=== PATIENT | male | born 1940 | race Caucasian/White ===

== ENCOUNTER 2020-05-25 07:41 | Emergency (ER) | payer MEDICARE ==
[2020-05-25 08:11] LABS: BASOPHIL 0.3 % (0-2); EOSINOPHIL 0.8 % (0-7); HCT 36.5 % (42.0-52.0); HGB 11.7 g/dl (13.2-18.0); LYMPHOCYTE 5.9 % (15-48); MCH 29.5 pg (25.0-31.0); MCHC 32.1 g/dL (32.0-36.0); MCV 92.2 fL (78.0-100.0); MONOCYTE 1.3 % (0-12); MPV 9.5 fL (6.0-9.5); NRBC 0; PLT 132 K/uL (150-400); RBC 3.96 M/uL (4.70-6.00); RDW 13.3 % (11.5-14.0); WBC 3.7 K/uL (4.0-10.5)
[2020-05-25 08:19] LABS: NEUTROPHIL 91.4 % (41-80)
[2020-05-25 08:21] LABS: INR 0.96 (0.9-1.2); PROTHROMBIN TIME 12.1 SECONDS (11.4-13.6); PTT 26.3 SECONDS (22.2-34.7)
[2020-05-25 08:36] LABS: LACTIC ACID 4.1 mmol/L (0.4-1.9)
[2020-05-25 08:38] LABS: ALBUMIN 3.5 g/dL (3.4-5.0); BILIRUBIN - TOTAL 0.5 mg/dL (0.2-1.0); BUN/CREAT RATIO (CALC) 28.9 RATIO; CREATININE 0.76 mg/dL (0.67-1.17); GLOBULIN (CALCULATION) 3.1 g/dL; MAGNESIUM 1.3 mg/dL (1.8-2.4); POTASSIUM 4.3 mmol/L (3.5-5.1); TOTAL PROTEIN 6.6 g/dL (6.4-8.2)
[2020-05-25 08:57] LABS: BILIRUBIN NEGATIVE (NEGATIVE); BLOOD NEGATIVE Ery/uL (NEGATIVE); CLARITY CLEAR (CLEAR); COLOR YELLOW (YELLOW); GLUCOSE (U) NORMAL (NORMAL); LEUKOCYTES NEGATIVE Leu/uL (NEGATIVE); NITRITE NEGATIVE (NEGATIVE); PROTEIN TRACE (LOW) mg/dL (NEGATIVE); SPECIFIC GRAVITY >=1.030 (1.001-1.030); UROBILINOGEN 0.2 mg/dL (0.2-1.0); pH 5.5 (5.0-9.0)
[2020-05-25 09:22] LABS: BACTERIA TRACE; URINARY RBC RARE
[2020-05-25 09:37] LABS: CORONAVIRUS 2019 SARS-COV-2 NEGATIVE (NEGATIVE); INFLUENZA A NAA NEGATIVE (NEGATIVE)
== END 2020-05-25 12:00 | disposition other institution (70) ==
LOC: FER 07:41 → FMS 10:26 → FER 10:26
PROVIDERS: Emergency Medicine
DX: A41.9 Sepsis, unspecified organism (principal); I45.2 Bifascicular block; I44.0 Atrioventricular block, first degree; J98.11 Atelectasis; R91.8 Other nonspecific abnormal finding of lung field; E11.40 Type 2 diabetes mellitus with diabetic neuropathy, unspecified; I10 Essential (primary) hypertension; Z79.84 Long term (current) use of oral hypoglycemic drugs; Z20.822 Contact with and (suspected) exposure to COVID-19
CPT/HCPCS: 36415; 71045; 71250; 80053; 81001; 83605; 83735; 84145; 85025; 85610; 85730; 87040; 87077; 87088; 87186; 93005; J1885; J2060; J2543; J3370; J7030; J7050; U0002